=== PATIENT | female | born 1995 | race Caucasian/White ===

== ENCOUNTER 2017-04-22 19:46 | Emergency (ER) | payer SELFPAY, OTHER | END 2017-04-22 22:15 | disposition left against medical advice (07) | LOC: FTE 19:46 | DX: Z53.21 Procedure and treatment not carried out due to patient leaving prior to being seen by health care provider (principal) ==

== ENCOUNTER 2017-08-31 16:07 | Emergency (ER) | payer OTHER ==
[2017-08-31] MEDS: IBUPROFEN 600 MG TAB PO (17:23)
[2017-08-31] MEDS: ONDANSETRON (ODT) 4 MG TAB ODT (17:23)
[2017-08-31] MEDS: ACETAMINOPHEN 500 MG TAB PO (17:23)
== END 2017-08-31 19:17 | disposition home or self-care (01) ==
LOC: FTE 16:07
DX: R07.9 Chest pain, unspecified (principal); R11.10 Vomiting, unspecified
CPT/HCPCS: 71045; 81025; 93005; 99284-25

== ENCOUNTER 2017-12-11 22:07 | Emergency (ER) | payer OTHER ==
[2017-12-11 23:42] LABS: URINE BLOOD (Dip) POC Negative (NEGATIVE); URINE GLUCOSE (Dip) POC Negative (NEGATIVE); URINE KETONES (Dip) POC Negative (NEGATIVE); URINE LEUKOCYTE EST (Dip) POC Trace (NEGATIVE); URINE NITRITE (Dip) POC Negative (NEGATIVE); URINE TOTAL PROTEIN POC 1+ (NEGATIVE)
== END 2017-12-12 00:11 | disposition home or self-care (01) ==
LOC: FTE 12-12 00:11
DX: J02.9 Acute pharyngitis, unspecified (principal); R30.0 Dysuria
CPT/HCPCS: 81003; 81025; 99283

== ENCOUNTER 2018-03-22 20:54 | Emergency (ER) | payer OTHER ==
[2018-03-22 23:00] LABS: ADD MAN DIFF? NO
[2018-03-22 23:01] LABS: BASOPHILS % 0.3 % (0.0-2.0); EOSINOPHILS # 0.1 10^3/ul (0.0-0.5); EOSINOPHILS % 0.5 % (0.0-7.0); HEMATOCRIT 37.4 % (37.0-47.0); HEMOGLOBIN 11.6 g/dl (12.0-16.0); LYMPHOCYTES # 2.9 10^3/ul (0.8-2.9); LYMPHOCYTES % 31.3 % (15.0-51.0); MEAN CORPUSCULAR HEMOGLOBIN 23.7 pg (29.0-33.0); MEAN CORPUSCULAR VOLUME 76.3 fl (82.0-101.0); MONOCYTE # 0.5 10^3/ul (0.3-0.9); MONOCYTES % 5.6 % (0.0-11.0); NEUTROPHIL # 5.6 10^3/ul (1.6-7.5); NEUTROPHILS % 61.9 % (39.0-77.0); PLATELET COUNT 238 10^3/UL (140-415); RED CELL DISTRIBUTION WIDTH 15.9 % (11.5-14.5)
[2018-03-22 23:01] LABS: WHITE BLOOD COUNT 9.1 10^3/ul (4.8-10.8)
== END 2018-03-22 23:37 | disposition home or self-care (01) ==
LOC: FTE 20:54
DX: R22.9 Localized swelling, mass and lump, unspecified (principal)
CPT/HCPCS: 36415; 85025; 99283